=== PATIENT | female | born 1995 | race African-American/Black ===

== ENCOUNTER 2020-06-17 19:41 | Emergency (ER) | payer BC ==
[~2020-06-17] VITALS: Ht 162.6 cm; Wt 72.1 kg
[2020-06-17] MEDS ORDERED: NUVAMIS2 PV (20:03)
[2020-06-17 20:34] LABS: BASO # 0.1 10^3/uL (0.0-0.2); BASO % 1.1 % (0.0-1.0); EOS # 0.2 10^3/uL (0.0-0.5); EOS % 3.4 % (0.0-3.0); HEMATOCRIT 38.7 % (36.0-47.0); HEMOGLOBIN 12.8 g/dl (12.0-15.5); LYMPH # 1.9 10^3/uL (1.5-5.0); LYMPH % 29.8 % (24.0-44.0); MEAN CORPUSCULAR HGB CONC 33.1 g/dl (32.0-36.5); MEAN CORPUSCULAR VOLUME 87.6 fl (80.0-96.0); MONO # 0.6 10^3/uL (0.0-0.8); NEUTROPHILS # 3.5 10^3/uL (1.5-8.5); NEUTROPHILS % 56.4 % (36.0-66.0); PLATELET COUNT, AUTOMATED 269 10^3/uL (150-450); RED BLOOD COUNT 4.42 10^6/uL (4.00-5.40); WHITE BLOOD COUNT 6.3 10^3/uL (4.0-10.0)
[2020-06-17 20:37] LABS: INR 1.06; PARTIAL THROMBOPLASTIN TIME 27.8 SECONDS (24.2-38.5)
[2020-06-17 20:46] LABS: D-DIMER QUANT < 270 ng/ml (<500)
[2020-06-17 20:48] LABS: ALBUMIN 3.1 GM/DL (3.2-5.2); ALT/SGPT 19 U/L (12-78); BILIRUBIN,DIRECT 0.1 MG/DL (0.0-0.2); BILIRUBIN,TOTAL 0.2 MG/DL (0.2-1.0); BLOOD UREA NITROGEN 11 MG/DL (7-18); CARBON DIOXIDE LEVEL 25 MEQ/L (21-32); CHLORIDE LEVEL 108 MEQ/L (98-107); CK-MB VALUE MASS < 1.0 NG/ML (<3.6); CPK CREATINE PHOSPHOKINASE 309 U/L (26-192); CREATININE FOR GFR 0.84 MG/DL (0.55-1.30); GLOMERULAR FILTRATION RATE > 60.0 (>60); GLUCOSE, FASTING 83 MG/DL (70-100); LIPASE 146 U/L (73-393); MB/CK RELATIVE INDEX 0.32 (< OR =4); POTASSIUM SERUM 4.1 MEQ/L (3.5-5.1); SODIUM LEVEL 139 MEQ/L (136-145); TROPONIN I < 0.02 NG/ML (< 0.10)
[2020-06-17] MEDS ORDERED: IPRAINH INH (21:27)
--- NOTE | 2020-06-17 21:41 | REPVR ---
PROCEDURE INFORMATION: Exam: XR Chest Exam date and time: 06/17/2020 8:52 PM Age: 25 years old Clinical indication: Chest pain; Pleurodynia; Additional info: Pleuritic chest painb TECHNIQUE: Imaging protocol: XR of the chest Views: 2 views. COMPARISON: No relevant prior studies available. FINDINGS: Lungs: Minimal left base infiltrate. Pleural spaces: Unremarkable. No pleural effusion. No pneumothorax. Heart/Mediastinum: Unremarkable. No cardiomegaly. Bones/joints: Unremarkable. IMPRESSION: 1. Minimal left base infiltrate. 2. Otherwise negative chest. Electronically signed by: Ambrose Morelos On 06/17/2020 21:42:14 PM
[2020-06-17] MEDS ORDERED: AMOX500C PO (21:53)
[2020-06-17 22:16] VITALS: BP 121/78
--- NOTE | 2020-06-19 17:45 | ECGEPIP ---
[facility] - ED Test Date: 2020-06-17 Pat Name: KATEY DEJESUS Department: Room: - Gender: Female [employer] Director: LR : 1995 Requested By: NORBERT MERRILL Order Number: [id number] Reading MD: Caitlin Hagan Measurements Intervals [place] Rate: 68 P: -14 SC: 144 QRS: 24 QRSD: 90 T: 26 QT: 402 QTc: 427 Interpretive Statements Normal sinus rhythm baseline artifact may affect interpretation no prior Electronically Signed on 06-19-2020 17:44:50 EDT by Caitlin Hagan
== END 2020-06-17 22:15 | disposition home or self-care (01) ==
LOC: M ED 19:41
DX: R09.1 Pleurisy (principal); F17.290 Nicotine dependence, other tobacco product, uncomplicated